=== PATIENT | female | born 1995 | race African-American/Black ===

== ENCOUNTER 2019-09-25 20:30 | Inpatient (IN) | payer SELFPAY ==
[~2019-09-25] VITALS: Ht 167.6 cm; Wt 108.9 kg
[2019-09-25] MEDS ORDERED: LEVETIRACETAM 1000MG/100ML 100 ML IV ONE (21:45)
[2019-09-25] MEDS ORDERED: LORAZEPAM 2MG/ML CPJ ONE (21:58)
[2019-09-25] MEDS ORDERED: LORAZEPAM 2MG/ML CPJ IV ONE (22:00)
[2019-09-25 23:02] LABS: CLARITY URINE CLEAR (CLEAR); COLOR URINE YELLOW (YELLOW); KETONES URINE NEGATIVE (NEGATIVE); LEUKOCYTE ESTERASE URINE NEGATIVE (NEGATIVE); NITRITE URINE NEGATIVE (NEGATIVE); OCCULT BLOOD URINE NEGATIVE (NEGATIVE); PROTEIN URINE TRACE (NEGATIVE); SPECIFIC GRAVITY URINE 1.018 (1.005-1.030); UROBILINOGEN URINE 0.2 E.U./dL (0.2-1.0)
[2019-09-25 23:13] LABS: *BENZODIAZEPINES SCREEN URINE NEGATIVE (NEGATIVE); *COCAINE SCREEN URINE NEGATIVE (NEGATIVE)
[2019-09-25 23:14] LABS: *AMPHETAMINES SCREEN URINE NEGATIVE (NEGATIVE); *BARBITURATES SCREEN URINE NEGATIVE (NEGATIVE); CANNABINOID URINE SCREEN PRESUMTIVE POSITIVE (NEGATIVE); METHADONE URINE SCREEN NEGATIVE (NEGATIVE); OPIATES URINE SCREEN NEGATIVE (NEGATIVE); PHENCYCLIDINE URINE SCREEN NEGATIVE (NEGATIVE)
[2019-09-25 23:59] LABS: CHLORIDE 107 mEq/L (98-107)
[2019-09-26] VITALS (7 sets, daily range): BP systolic 111–124; BP diastolic 56–84
[2019-09-26 00:02] LABS: ETHANOL BLOOD < 10 mg/dL
[2019-09-26 00:05] LABS: HEMATOCRIT. 40.6 % (36.0-48.0); HEMOGLOBIN. 13.3 g/dL (12.0-16.0); MEAN CORPUSCULAR VOLUME 82.2 fL (81.0-99.0); MEAN PLATELET VOLUME 8.4 fl (7.4-10.4); PLATELET 313 x1000/uL (130-400); RED BLOOD CELL COUNT 4.94 mill/uL (4.2-5.4); RED CELL DISTRIBUTION WIDTH 16.5 % (11.6-14.6)
[2019-09-26 00:45] LABS: HCG SCREEN NEGATIVE
[2019-09-26 02:01] LABS: PLATELET ESTIMATE NORMAL
[2019-09-26] MEDS ORDERED: MAGNESIUM/ALUMINUM HYDROXIDE/SIMETHICONE 30ML UDC PO PRN (03:45)
[2019-09-26] MEDS ORDERED: ACETAMINOPHEN 325MG TABLET PO PRN (03:45)
[2019-09-26] MEDS ORDERED: LORAZEPAM 2MG/ML CPJ IV PRN (03:45)
[2019-09-26] MEDS ORDERED: ONDANSETRON HCL 4MG/2ML INJ IV PRN (03:45)
[2019-09-26] MEDS ORDERED: LEVETIRACETAM 500 MG in SODIUM CHLORIDE 0.9% 100 ML IV SCH (03:45)
[2019-09-26] MEDS ORDERED: CLONIDINE 0.1MG TABLET PO PRN (03:45)
[2019-09-26] MEDS ORDERED: HYDROCODONE/ACETAMINOPHEN 5/325MG TABLET PO PRN (03:45)
[2019-09-26] MEDS: SODIUM CHLORIDE 0.9% 1,000 ML IV SCH ×2 (06:20→06:51)
[2019-09-26] MEDS ORDERED: LEVETIRACETAM 500MG PREMIX 100 ML IV SCH (09:00)
[2019-09-26] MEDS ORDERED: ENOXAPARIN 30MG/0.3ML SYR SUBCUT SCH (09:00)
[2019-09-26] MEDS ORDERED: LEVETIRACETAM 500MG/5ML CUP PO SCH (21:00)
== END 2019-09-26 13:20 | disposition home or self-care (01) | DRG 53 ==
LOC: ER 20:30 → 5EST 09-26 00:15 → EDBEDREQTM 09-26 00:30 → EDBEDREQSVC 09-26 00:30 → EDBEDREQ 09-26 00:30 → EDBEDREQDT 09-26 00:30 → ENRESERV 09-26 01:42
PROVIDERS: ADMIT Hospitalist; ATTEND Hospitalist
DX: G40.901 Epilepsy, unspecified, not intractable, with status epilepticus (principal); F12.90 Cannabis use, unspecified, uncomplicated; Z91.19 Patient's noncompliance with other medical treatment and regimen; Z91.14 Patient's other noncompliance with medication regimen; Z79.899 Other long term (current) drug therapy
CPT/HCPCS: 36415; 80053; 80305; 80320; 81003; 84703; 85025; 93005; 93970; 99285; J1650; J1953; J2060; J7030; G0480